=== PATIENT | male | born 1985 | race Two or more races ===

== ENCOUNTER 2016-11-14 05:36 | Day surgery (SDC) | payer BC ==
[2016-11-14] VITALS (12 sets, daily range): BP systolic 123–143; BP diastolic 61–90; PULSE 36–58; RESP 16–36; Ht 177.8 cm; Wt 78.9 kg
[~2016-11-14] VITALS: Ht 177.8 cm; Wt 78.9 kg
[~2016-11-14 05:36] MED LIST: BUPIVACAINE 0.25% (MPF) 10 ML 10 ML VIAL INJ ONE; CEFAZOLIN 2 GM/50 ML (PMX) 50 ML IVPB ONE; POLYMYXIN/BACITRACIN 1L IRRIG IRR ONE; SOD CHLORIDE 0.9% 1,000 ML IV ONE
[2016-11-14] MEDS ORDERED: BUPIVACAINE 0.25% (MPF) 30 ML INJ ONE (06:56)
[2016-11-14] MEDS ORDERED: BUPIVACAINE 0.25% (MPF) 10 ML 10 ML VIAL ONE (06:56)
[2016-11-14] MEDS ORDERED: FENTAnyl 50 MCG/ML VIAL ONE (07:32)
[2016-11-14] MEDS ORDERED: MIDAZOLAM 1 MG/ML 2 ML INJ ONE (07:32)
[2016-11-14] MEDS ORDERED: ONDANSETRON 4 MG INJ IV PRN (08:30)
[2016-11-14] MEDS ORDERED: MEPERIDINE 25 MG INJ IV PRN (08:30)
[2016-11-14] MEDS ORDERED: morphine (1 MG/ML) 10ML SYRINGE IV PRN (08:30)
[2016-11-14] MEDS ORDERED: DIPHENHYDRAMINE 50 MG INJ IV PRN (08:30)
[2016-11-14] MEDS ORDERED: FENTAnyl 50 MCG/ML VIAL IV PRN (08:30)
[2016-11-14] MEDS ORDERED: ONDANSETRON 4 MG INJ ONE (08:31)
[2016-11-14] MEDS ORDERED: NEOSTIGMINE 3 MG/3 ML SYRINGE ONE (08:32)
[2016-11-14] MEDS ORDERED: GLYCOPYRROLATE 0.4 MG INJ ONE (08:32)
[2016-11-14] MEDS ORDERED: LIDOCAINE 2% (SDV) 5 ML INJ ONE (08:32)
[2016-11-14] MEDS ORDERED: PROPOFOL 20 ML ONE (08:32)
[2016-11-14] MEDS: morphine (1 MG/ML) 10ML SYRINGE IV PRN ×3 (08:46→09:22)
[2016-11-14] MEDS ORDERED: HYDROCODONE/APAP (5/325) TAB PO ONE (09:00)
[2016-11-14] MEDS ORDERED: NALOXONE (0.4 MG/ML) INJ ONE (09:18)
[2016-11-14] MEDS ORDERED: NALOXONE (0.4 MG/ML) INJ IV ONE (09:30)
--- NOTE | 2016-11-14 10:56 | OPR ---
DATE OF OPERATION: 11/14/2016 INDICATION: This is a 31-year-old male with a large right inguinal hernia. He requests surgical re pair. Risks, alternatives, benefits, and personnel were discussed with patient. Patient expressed understanding and consents to the operation. PREOPERATIVE DIAGNOSIS: Right inguinal hernia. POSTOPERATIVE DIAGNOSIS: Right inguinal hernia. OPERATION: Open right inguinal hernia repair with large size Ultrapro hernia system mesh. SURGEON: Jeff Dejesus MD SPECIMENS: None. COMPLICATIONS: None. ANESTHESIA: General. DESCRIPTION OF PROCEDURE: The patient was taken to the OR and prepped and draped in usual sterile f ashion. Surgical timeout was performed. IV antibiotics were given. Right inguinal oblique incisio n is made with a 10 blade. Dissection cautery was carried down to the external oblique fascia which was opened with a 15 blade. This incision is extended medial inferiorly and lateral superiorly wit h Metzenbaum scissors. Cord structures are encircled with a Vic drain. Large indirect hernia i s identified and contents are reduced. There is a sliding component, the omental component was redu mynor. This hernia sac was then twisted and suture ligated with 0 Vicryl. This was afixed to the dis k portion of the UltraPro hernia system mesh. The disk portion was also secured in place with a run kristina 0 Prolene from the pubic tubercle along the shelving edge of the inguinal ligament and superior ly to the internal oblique with interrupted 3-0 Vicryl. Onlay mesh was secured in a similar fashion with a running 0 Prolene from the pubic tubercle along the shelving edge of the inguinal ligament. Straps are created and reapproximated with interrupted 0 Prolene to recreate the inguinal ring. On lay mesh was secured to the internal oblique with interrupted 3-0 Vicryl. External oblique fascia w as closed with running 3-0 Vicryl. Delmi's was closed with interrupted 3-0 Vicryl. Skin was close d with skin errol. Local anesthesia was injected. Dry dressings were applied. Dictated By: JEFF BROWN/YENNIFER Conf#: [id number] DID#: [id number]
== END 2016-11-14 10:35 | disposition home or self-care (01) ==
LOC: SDS 05:36
PROVIDERS: ATTEND Surgery
DX: K40.90 Unilateral inguinal hernia, without obstruction or gangrene, not specified as recurrent (principal)
CPT/HCPCS: 49505; C1781; J0690; J2250; J2270; J2310; J2405; J2710; J3010